=== PATIENT | female | born 1970 | race Asian ===

== ENCOUNTER → 2017-10-08 | Outpatient (CLI) | payer BC ==
[~2017-10-08] MED LIST: FOLIC ACID0.8 MG PO; IRON TABLETS325 MG PO
== END ==
LOC: MC.RAD 14:30
DX: Z12.31 Encounter for screening mammogram for malignant neoplasm of breast (principal)

== ENCOUNTER → 2019-10-07 | Outpatient (CLI) | payer BC | LOC: COL.CARD 09-15 12:00 | DX: I10 Essential (primary) hypertension (principal) ==

== ENCOUNTER → 2019-10-21 | Outpatient (CLI) | payer BC | LOC: MC.RAD 14:04 | DX: Z12.31 Encounter for screening mammogram for malignant neoplasm of breast (principal) ==

== ENCOUNTER 2020-01-02 00:29 | Emergency (ER) | payer BC ==
[~2020-01-02] VITALS: Ht 157.5 cm; Wt 56.8 kg
[2020-01-02 00:36] VITALS: TEMP 96.7
[2020-01-02 01:11] LABS: BASO % 0.6 % (0.0-2.0); EOS # 0.1 (0.0-0.7); GRAN # 2.8 (1.4-6.5); GRAN % 43.9 % (42.2-75.2); HEMATOCRIT 39.1 % (37.0-47.0); HEMOGLOBIN 12.4 g/dl (12.5-16.0); LYMPH % 46.3 % (20.0-51.0); MEAN CELL VOLUME 86 fl (80.0-100.0); MEAN CORPUSCULAR HEMOGLOBIN 27 pg (27.0-31.0); MEAN CORPUSCULAR HGB CONC 32 g/dl (33.0-37.0); MEAN PLATELET VOLUME 11.5 fl (7.4-10.4); MONO # 0.4 (0.1-0.6); MONO % 6.9 % (1.7-9.3); PLATELET COUNT 212 K/mm3 (130-400); RED BLOOD COUNT 4.53 M/mm3 (4.10-5.30); REDCELL DISTRIBUTION WIDTH-CV 13.3 % (11.5-14.5)
[2020-01-02] MEDS ORDERED: NORVASC2.5 MG PO (01:17)
[2020-01-02 01:21] LABS: ALANINE AMINOTRANSFERASE 25 U/L (9-52); ALBUMIN 4.4 gm/dL (3.5-5.0); ALKALINE PHOSPHATASE 98 U/L (50-136); ANION GAP 9 mmol/L (7-16); AST,SGOT 19 U/L (15-37); BILIRUBIN,TOTAL 0.3 mg/dL (0.0-1.0); BLOOD UREA NITROGEN 9 mg/dL (7-17); CALCIUM 9.1 mg/dL (8.4-10.2); CARBON DIOXIDE 25 mmol/L (22-30); CHLORIDE 108 mmol/L (98-107); CREATININE, serum 0.51 (0.52-1.25); GLUCOSE 100 mg/dL (74-106); POTASSIUM 3.7 mmol/L (3.4-5.0); PROTHROMBIN TIME 11.9 SECONDS (9.7-12.8); SODIUM 143 mmol/L (137-145); TOTAL PROTEIN 7.1 gm/dL (6.4-8.2)
[2020-01-02 01:32] LABS: TROPONIN-I < 0.012 ng/mL (0.000-0.035)
[2020-01-02 04:09] VITALS: BP 125/87; PULSE 62
== END 2020-01-02 04:09 | disposition home or self-care (01) ==
LOC: COL.ER 00:29
PROVIDERS: Emergency Medicine
DX: I10 Essential (primary) hypertension (principal); R07.9 Chest pain, unspecified

== ENCOUNTER → 2022-04-26 | Outpatient (CLI) | payer BC ==
[~2022-04-26] MED LIST changes: +NORVASC2.5 MG PO
== END ==
LOC: MC.RAD 02-20 07:30
DX: Z12.31 Encounter for screening mammogram for malignant neoplasm of breast (principal); Z00.01 Encounter for general adult medical examination with abnormal findings